=== PATIENT | female | born 1985 | race Caucasian/White ===

== ENCOUNTER 2021-09-05 15:57 | Emergency (ER) | payer BC, MEDICAID ==
[2021-09-05] MEDS ORDERED: Sodium Chloride 0.9% 10 ML Syringe FLUSH PRN (17:13)
[2021-09-05 17:56] LABS: ANION GAP 12.6 mEq/L (7-13)
[2021-09-05] MEDS ORDERED: Iopamidol 612 MG/ML 100 ML Bottle IVPUSH ONE (18:52)
== END 2021-09-05 20:55 | disposition home or self-care (01) ==
LOC: DL.ED 15:57
DX: N20.0 Calculus of kidney (principal); K29.80 Duodenitis without bleeding; K29.70 Gastritis, unspecified, without bleeding; N83.202 Unspecified ovarian cyst, left side; F17.210 Nicotine dependence, cigarettes, uncomplicated; Z91.040 Latex allergy status; Z88.8 Allergy status to other drugs, medicaments and biological substances; Z20.822 Contact with and (suspected) exposure to COVID-19
CPT/HCPCS: 36415; 74177; 80053; 81003; 81025; 83605; 83690; 83735; 85025; 86140; 99284-25; J3490; Q9967; U0002